=== PATIENT | male | born 1945 | race Caucasian/White ===

== ENCOUNTER 2017-05-01 08:06 | Day surgery (SDC) | payer MEDICARE, BC ==
--- NOTE | 2017-05-01 07:37 | PCM.PREANE ---
Preanesthetic Assessment - Anesthesia/Transfusion/Family Hx Anesthesia History: Prior Anesthesia Without Reaction Family History of Anesthesia Reaction: No Transfusion History: No Prior Transfusion(s) - Review of Systems General: No Symptoms Pulmonary: No Symptoms Cardiovascular: No Symptoms Gastrointestinal: No Symptoms Neurological: No Symptoms Other: Reports: None - Physical Assessment NPO Status Date: 04/30/17 Height: 1.83 m Weight: 117.027 kg ASA Class: 3 Mental Status: Alert & Oriented x3 Airway Class: Mallampati = 2 Dentition: Reports: Normal Dentition ROM/Head Extension: Full Lungs: Clear to Auscultation, Normal Respiratory Effort Cardiovascular: Regular Rate, Regular Rhythm - Allergies Allergies/Adverse Reactions: Allergies Allergy/AdvReac Type Severity Reaction Status Date / Time No Known Allergies Allergy Verified 04/25/17 10:52 - Anesthesia Plan Pre-Op Medication Ordered: None - Acknowledgements Anesthesia Type Planned: General Anesthesia Pt an Appropriate Candidate for the Planned Anesthesia: Yes Alternatives and Risks of Anesthesia Discussed w Pt/Guardian: Yes Pt/Guardian Understands and Agrees with Anesthesia Plan: Yes Additional Comments: PMH: DM 1.5 (on insulin), SAMMI uses CPAP, htn, hld, s/p jerry, gout, PVOD/PAD s/ p femoral stent Patient would prefer head of bed to be elevated 30% after surgery. PreAnesthesia Questionnaire Other HEENT History: wears glasses, has 2 upper dental implants Cardiovascular History: Reports: High Cholesterol, Hypertension Respiratory History: Reports: Sleep Apnea Other Respiratory History: uses CPAP Gastrointestinal History: Reports: Hiatal Hernia, Other (See Below) Other Gastrointestinal History: has Barretts Esophagus Musculoskeletal History: Reports: Gout Endocrine/Metabolic History: Reports: Diabetes, Type II, Obesity/BMI 30+ - Past Surgical History Head Surgeries/Procedures: Reports: None HEENT Surgical History: Reports: Oral Surgery Other HEENT Surgeries/Procedures: 2 dental implants Cardiovascular Surgical History: Reports: Vascular Surgery Other Cardiovascular Surgeries/Procedures: right femoral artery stent placement GI Surgical History: Reports: Colonoscopy, EGD, Mayito Fundoplication Musculoskeletal Surgical History: Reports: Arthroscopic Knee, Shoulder Surgery Other Musculoskeletal Surgeries/Procedures:: left RTCR, denies hardware - SUBSTANCE USE Smoking Status *Q: Former Smoker Tobacco Use Within Last Twelve Months: No Recreational Drug Use History: No - HOME MEDS Home Medications: Home Meds Allopurinol [Zyloprim] 300 mg PO DAILY 04/25/17 [History] Aspirin [Adult Low Dose Aspirin EC] 81 mg PO DAILY 04/25/17 [History] Bisoprolol [Zebeta] 5 mg PO DAILY 04/25/17 [History] Hydrochlorothiazide 25 mg PO DAILY 04/25/17 [History] Insulin Aspart [NovoLOG] 8 unit SQ TIDMEALS 04/25/17 [History] Insulin Glarg,Human.Rec.Analog [LantUS Solostar] 20 unit SQ QPM 04/25/17 [ History] Omeprazole 20 mg PO DAILY 04/25/17 [History] Pioglitazone HCl [Actos] 30 mg PO DAILY 04/25/17 [History] Rosuvastatin [Crestor] 10 mg PO DAILY 04/25/17 [History] amLODIPine [Norvasc] 5 mg PO DAILY 04/25/17 [History] - CURRENT (IN HOUSE) MEDS Current Meds: Current Medications Hydrocodone Bitart/Acetaminophen ([place] 325-5 Mg) 1 - 2 tab PO Q4H PRN PRN Reason: Pain Cefazolin Sodium/Dextrose 2 gm (/ Premix) 50 mls @ 100 mls/hr IV ONCALL [facility] Lactated Ringer's (Ringers, Lactated) 1,000 mls @ 100 mls/hr IV ASDIRECTED [facility]
[~2017-05-01 08:06] MED LIST: Acetaminophen/HYDROcodone 325-5 MG Tab PO PRN; Lactated Ringers 1,000 ML IV SCH; Lidocaine 1% 20 ML MDV ONE; ceFAZolin 2 GM in Premix Bag 1 BAG IV SCH
[2017-05-01] MEDS ORDERED: Dexamethasone 4 MG/ML 5 ML MDV ONE (08:44)
[2017-05-01] MEDS ORDERED: Midazolam 1 MG/ML 2 ML SDV ONE (08:44)
[2017-05-01] MEDS ORDERED: Propofol 200 MG/20 ML SDV ONE (08:44)
[2017-05-01] MEDS ORDERED: fentaNYL 250 MCG/5 ML SDV ONE (08:44)
[2017-05-01] MEDS ORDERED: Ondansetron 4 MG/2 ML SDV ONE (08:44)
[2017-05-01] MEDS ORDERED: diphenhydrAMINE 50 MG/ML SDV ONE (08:44)
--- NOTE | 2017-05-01 10:33 | PCM.OPNOTE ---
- General Post-Op/Procedure Note Date of Surgery/Procedure: 05/01/17 Operative Procedure(s): L knee arthroscopy with PMM/PLM Post-Op Diagnosis: L knee DJD, med/lat meniscus tear Anesthesia Technique: General LMA Primary Surgeon: Lina Olmedo Iron Melter: Kayley Moralez in mLs: 5 Condition: Good Free Text/Narrative:: tt=13 min #[id number]
[2017-05-01] MEDS ORDERED: Ketorolac 30 MG/ML SDV ONE (10:36)
--- NOTE | 2017-05-01 11:02 | PCM.POSTAN ---
POST ANESTHESIA ASSESSMENT - MENTAL STATUS Mental Status: Alert, Oriented - RESPIRATORY Respiratory Status: Respiratory Rate WNL, Airway Patent, O2 Saturation Stable - CARDIOVASCULAR CV Status: Pulse Rate WNL, Blood Pressure Stable - GASTROINTESTINAL GI Status: No Symptoms - PAIN Pain Score: 2 - POST OP HYDRATION Hydration Status: Adequate & Stable
--- NOTE | 2017-05-01 11:05 | OR ---
SURGEON: Lina Olmedo MD DATE OF PROCEDURE: 05/01/2017 PREOPERATIVE DIAGNOSES: 1. Degenerative joint disease, left knee. 2. Left knee lateral meniscus tear. POSTOPERATIVE DIAGNOSIS: 1. Degenerative joint disease, left knee. 2. Left knee lateral meniscus tear. PROCEDURE: Left knee arthroscopy with partial medial and lateral meniscectomies. SERVICE COUNTER CASHIER: Rach Ventura RN. ANESTHESIA: General. ESTIMATED BLOOD LOSS: 5 mL. TOURNIQUET TIME: 13 minutes. COMPLICATIONS: None. DVT PROPHYLAXIS: Not indicated. IMPLANTS USED: None. BRIEF HISTORY: Nico is a 71-year-old male who has had complaint of progressive left knee pain. An MRI did show a tear of the lateral meniscus. Due to his lack of response to conservative treatment, I did recommend surgical intervention. Risks and goals of the procedure were discussed with the patient and were documented preoperatively. He agreed to proceed. DESCRIPTION OF PROCEDURE: The patient was properly identified and brought to the operating room. He was transferred from the OR cart and placed on the operating table in supine position. General anesthesia was administered. After adequate anesthesia was obtained, a well-padded tourniquet was applied to the left lower extremity. The left lower extremity was then prepped in standard fashion using ChloraPrep solution. It was then sterilely draped. A time-out was performed to ensure correct site and procedure. Preoperative antibiotics were given. The surgical site had been marked preoperatively. An Esmarch was used to exsanguinate the left lower extremity and the tourniquet was inflated to 250 mmHg. A lateral portal arthrotomy was established. Blunt trocar and cannula were introduced into the suprapatellar pouch. Camera, inflow, and outflow were assembled. The suprapatellar pouch showed no significant synovitis. The patellofemoral joint was then visualized. 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 The trochlear groove showed minor grade 2 chondromalacia only. The patella appeared to track centrally. I then extended down the lateral and medial gutter. No loose bodies were identified. I then entered the medial compartment. A medial portal arthrotomy was established. A blunt probe was inserted. He was found to have a radial tear along the posterior horn of the medial meniscus. Using a combination of biters and shaver, this was resected back to a stable remnant. Grade 3 chondromalacia was also noted diffusely along the undersurface of the medial femoral condyle. A chondroplasty was performed and this was resected to a stable remnant. Grade 2 chondromalacia was noted along the medial tibial plateau. I then entered the notch. Both the ACL and PCL were visualized and probed and found to be intact. I then entered the lateral compartment. Grade 3 degenerative changes were again noted along the lateral tibial plateau. The lateral femoral condyle showed diffuse grade 2 chondromalacia changes only. He did have degenerative fraying with some horizontal tearing of the lateral meniscus. This was resected with a combination of biters and shaver. The meniscus was again probed and found to be stable. Instruments were then removed from the knee. The portal sites were closed with 3-0 nylon. Lidocaine 1% was injected along the portal tracts. Xeroform gauze was placed over the wound and a bulky dressing was applied. The tourniquet was then deflated. He was awakened from his anesthetic and transferred back to the operating room cart. He was brought to recovery room in stable condition. All needle and sponge counts were correct. KIRA / NICK /[id number]
--- NOTE | 2017-05-01 11:14 | PCM48HPAN ---
Post Anesthesia Note - EVALUATION WITHIN 48HRS OF ANESTHETIC Vital Signs in Normal Range: Yes Patient Participated in Evaluation: Yes Respiratory Function Stable: Yes Airway Patent: Yes Cardiovascular Function Stable: Yes Hydration Status Stable: Yes Pain Control Satisfactory: Yes Nausea and Vomiting Control Satisfactory: Yes Mental Status Recovered: Yes
== END 2017-05-01 12:00 | disposition home or self-care (01) ==
LOC: MW.SDS 08:06
PROVIDERS: ATTEND Orthopaedic Surgery
DX: M23.222 Derangement of posterior horn of medial meniscus due to old tear or injury, left knee (principal); M23.201 Derangement of unspecified lateral meniscus due to old tear or injury, left knee; M17.12 Unilateral primary osteoarthritis, left knee; M94.262 Chondromalacia, left knee; Z79.82 Long term (current) use of aspirin; Z79.899 Other long term (current) drug therapy
CPT/HCPCS: 29880; J0690; J1100; J1200; J1885; J2250; J2405; J3010; J7120; 01400; 88304; J2704

== ENCOUNTER 2018-01-20 06:35 | Inpatient (IN) | payer MEDICARE, BC ==
[~2018-01-20 06:35] MED LIST changes: -Acetaminophen/HYDROcodone 325-5 MG Tab PO PRN; +Famotidine 20 MG/2 ML SDV IVPUSH SCH; +Ketorolac 15 MG/ML SDV IVPUSH SCH; -Lactated Ringers 1,000 ML IV SCH; -Lidocaine 1% 20 ML MDV ONE; +Scopolamine 1.5 MG Transdermal Patch TRDERM SCH; -ceFAZolin 2 GM in Premix Bag 1 BAG IV SCH
[2018-01-20] MEDS: Acetaminophen 1,000 MG in Premix Bag 1 BAG IV SCH ×4 (07:13→18:18)
[2018-01-20] MEDS: Lactated Ringers 1,000 ML IV SCH ×2 (07:15→15:03)
[2018-01-20] MEDS ORDERED: ceFAZolin/Dextrose,Iso-Osmotic 2 GM/50 ML Duplex Bag IV ONE (07:25)
[2018-01-20] MEDS ORDERED: Midazolam 1 MG/ML 2 ML SDV ONE (07:26)
[2018-01-20] MEDS ORDERED: Propofol 200 MG/20 ML SDV ONE (07:26)
[2018-01-20] MEDS ORDERED: fentaNYL 100 MCG/2 ML SDV ONE (07:26)
--- NOTE | 2018-01-20 07:29 | PCM.PREANE ---
Preanesthetic Assessment - Procedure Proposed Procedure: Left TKR - Anesthesia/Transfusion/Family Hx Anesthesia History: Prior Anesthesia Without Reaction Family History of Anesthesia Reaction: No Transfusion History: No Prior Transfusion(s) Intubation History: Unknown Additional History: sleep apnea hx; former smoker;insulin dependent diabetic (FBS at 0600 - 120) - took 1/2 Lantus last PM - Review of Systems General: Other (bilateral leg pain) Pulmonary: No Symptoms, Other (SAMMI) Cardiovascular: Other (HTN-treated; PVD) Gastrointestinal: Other (Barretts esophagus) Neurological: Gait Disturbance (due to knee pains) Other: Reports: Diabetes (Type II - insulin dependent), Depression - Physical Assessment NPO Status Date: 01/19/18 NPO Status Time: 22:00 Height: 6 ft Weight: 250 lb ASA Class: 3 Mental Status: Alert & Oriented x3 Airway Class: Mallampati = 2 Dentition: Reports: Normal Dentition, Implants Thyro-Mental Finger Breadths: 3 Mouth Opening Finger Breadths: 3 ROM/Head Extension: Full Lungs: Clear to Auscultation, Normal Respiratory Effort Cardiovascular: Regular Rate, Regular Rhythm, No Murmurs - Allergies Allergies/Adverse Reactions: Allergies Allergy/AdvReac Type Severity Reaction Status Date / Time No Known Allergies Allergy Verified 01/15/18 09:54 - Blood Blood Available: No Product(s) Available: None - Anesthesia Plan Pre-Op Medication Ordered: Other (meds for post op per surgeon) - Acknowledgements Anesthesia Type Planned: Spinal (sedation only unless airway problem) Pt an Appropriate Candidate for the Planned Anesthesia: Yes Alternatives and Risks of Anesthesia Discussed w Pt/Guardian: Yes Pt/Guardian Understands and Agrees with Anesthesia Plan: Yes PreAnesthesia Questionnaire HEENT History: Reports: Other (See Below) Other HEENT History: wears glasses, has 2 upper dental implants Cardiovascular History: Reports: CAD, High Cholesterol, Hypertension Respiratory History: Reports: Sleep Apnea Other Respiratory History: uses CPAP Gastrointestinal History: Reports: GERD, Hiatal Hernia, Other (See Below) Other Gastrointestinal History: has Barretts Esophagus Genitourinary History: Reports: None Musculoskeletal History: Reports: Gout, Osteoarthritis Endocrine/Metabolic History: Reports: Diabetes, Type II, Obesity/BMI 30+ - Past Surgical History Head Surgeries/Procedures: Reports: None HEENT Surgical History: Reports: Oral Surgery, Tonsillectomy Other HEENT Surgeries/Procedures: 2 dental implants Cardiovascular Surgical History: Reports: Vascular Surgery Other Cardiovascular Surgeries/Procedures: right femoral artery stent placement GI Surgical History: Reports: Colonoscopy, EGD, Mayito Fundoplication Neurological Surgical History: Reports: Lumbar Spine Other Neurological Surgeries/Procedures: hx back surgery, denies hardware Musculoskeletal Surgical History: Reports: Arthroscopic Knee, Shoulder Surgery Other Musculoskeletal Surgeries/Procedures:: left RTCR, denies hardware - SUBSTANCE USE Smoking Status *Q: Former Smoker Recreational Drug Use History: No - HOME MEDS Home Medications: Home Meds Allopurinol [Zyloprim] 300 mg PO DAILY 04/25/17 [History] Aspirin [Adult Low Dose Aspirin EC] 81 mg PO DAILY 04/25/17 [History] Bisoprolol [Zebeta] 5 mg PO DAILY 04/25/17 [History] Hydrochlorothiazide 25 mg PO DAILY 04/25/17 [History] Insulin Aspart [NovoLOG] 8 unit SQ TIDMEALS 04/25/17 [History] Insulin Glarg,Human.Rec.Analog [LantUS Solostar] 20 unit SQ QPM 04/25/17 [ History] Omeprazole 20 mg PO DAILY 04/25/17 [History] Pioglitazone HCl [Actos] 30 mg PO DAILY 04/25/17 [History] Rosuvastatin [Crestor] 10 mg PO DAILY 04/25/17 [History] amLODIPine [Norvasc] 10 mg PO DAILY 04/25/17 [History] - CURRENT (IN HOUSE) MEDS Current Meds: Current Medications Bupivacaine Liposome (Exparel) 20 ml INFILT ONETIME [facility] Famotidine (Pepcid) 40 mg IVPUSH ONARRIVE [facility] Last Admin: 01/20/18 07:14 Dose: 40 mg Acetaminophen 1,000 mg/ Premix 100 mls @ 400 mls/hr IV ONARRIVE [facility] Last Admin: 01/20/18 07:13 Dose: 400 mls/hr Cefazolin Sodium/Dextrose 2 gm (/ Premix) 50 mls @ 100 mls/hr IV ONCALL [facility] Ropivacaine 49.25 ml/Ketorolac Tromethamine 30 mg/Epinephrine HCl 0.5 mg/ Clonidine HCl 80 mcg/ Sodium Chloride 70 mls @ 50 mls/sec INJECT ASDIRECTED [facility] Lactated Ringer's (Ringers, Lactated) 1,000 mls @ 100 mls/hr IV ASDIRECTED [facility] Tranexamic Acid 4,000 mg/ (Sodium Chloride) 140 mls @ 600 mls/hr IV ASDIRECTED [facility] Ketorolac Tromethamine (Toradol) 15 mg IVPUSH ONARRIVE [facility] Last Admin: 01/20/18 07:15 Dose: 15 mg Scopolamine (Transderm-Scop) 1.5 mg TRDERM ONARRIVE [facility] Last Admin: 01/20/18 07:14 Dose: 1.5 mg
[2018-01-20] MEDS ORDERED: Bupivacaine Liposome 1.3% 20 ML SDV INFILT SCH (08:00)
[2018-01-20] MEDS ORDERED: Ropivacaine 49.25 ML, Ketorolac 30 MG, EPINEPHrine 0.5 MG, cloNIDine 80 MCG in Sodium C... INJECT SCH (08:00)
[2018-01-20] MEDS ORDERED: Tranexamic Acid 4,000 MG in Sodium Chloride 0.9% 100 ML IV SCH (08:00)
[2018-01-20] MEDS ORDERED: ceFAZolin 2 GM in Premix Bag 1 BAG IV SCH (08:00)
[2018-01-20] MEDS ORDERED: ePHEDrine 50 MG/ML SDV ONE (08:22)
[2018-01-20] MEDS ORDERED: Phenylephrine/Normal Saline 100 MCG/ML 10 ML Syringe ONE (08:29)
[2018-01-20] MEDS ORDERED: Ondansetron 4 MG/2 ML SDV IV PRN (09:48)
[2018-01-20] MEDS ORDERED: Bisacodyl 10 MG Supp RECTAL PRN (09:49)
[2018-01-20] MEDS ORDERED: Aluminum Hydroxide/Magnesium Hydroxide/Simethicone Susp 30 ML Cup PO PRN (09:49)
[2018-01-20] MEDS ORDERED: diphenhydrAMINE 25 MG Cap PO PRN (09:49)
[2018-01-20] MEDS ORDERED: Morphine PF 30 MG/30 ML PCA Vial IV SCH (10:00)
--- NOTE | 2018-01-20 10:01 | PCM.OPNOTE ---
- General Post-Op/Procedure Note Date of Surgery/Procedure: 01/20/18 Operative Procedure(s): L TKA Post-Op Diagnosis: DJD left knee Primary Surgeon: Lina Olmedo Yarn Dumper: Kayley Moralez in mLs: 50 Condition: Good Free Text/Narrative:: [id number]
--- NOTE | 2018-01-20 10:39 | PCM.POSTAN ---
POST ANESTHESIA ASSESSMENT - MENTAL STATUS Mental Status: Alert, Oriented - RESPIRATORY Respiratory Status: Respiratory Rate WNL, Airway Patent, O2 Saturation Stable - CARDIOVASCULAR CV Status: Pulse Rate WNL, Blood Pressure Stable - GASTROINTESTINAL GI Status: No Symptoms - PAIN Pain Score: 0 (able to move legs so residual spinal still effective) - POST OP HYDRATION Hydration Status: Adequate & Stable - OBSERVATIONS Free Text/Narrative:: To Phase II - med/surg
--- NOTE | 2018-01-20 13:21 | PCM.CONS ---
<Agustina KeeneandaJoão - Last Filed: 01/20/18 13:44> H&P History of Present Illness - General Date of Service: 01/20/18 Admit Problem/Dx: Admission Diagnosis/Problem Admission Diagnosis/Problem Replacement of total knee joint - History of Present Illness Initial Comments - Free Text/Narative: Nico Ordoñez is a 72 y/o male with history of Diabetes Mellitus type 2 on insulin and hypertension who is s/p left total knee arthroplasty by Dr. Olmedo on 01/20/18. Patient denies any pain in his lower extremities. States that his pain is well controlled with current medications. Denies any chest pain, dyspnea , abdominal pain. No dysuria or change in bowel movements. - Related Data Allergies/Adverse Reactions: Allergies Allergy/AdvReac Type Severity Reaction Status Date / Time apple Allergy Hives Verified 01/20/18 13:15 Home Medications: Home Meds Allopurinol [Zyloprim] 300 mg PO DAILY 04/25/17 [History] Aspirin [Adult Low Dose Aspirin EC] 81 mg PO DAILY 04/25/17 [History] Bisoprolol [Zebeta] 5 mg PO DAILY 04/25/17 [History] Hydrochlorothiazide 25 mg PO DAILY 04/25/17 [History] Insulin Aspart [NovoLOG] 8 unit SQ TIDMEALS 04/25/17 [History] Insulin Glarg,Human.Rec.Analog [LantUS Solostar] 20 unit SQ QPM 04/25/17 [ History] Omeprazole 20 mg PO DAILY 04/25/17 [History] Pioglitazone HCl [Actos] 30 mg PO DAILY 04/25/17 [History] Rosuvastatin [Crestor] 10 mg PO DAILY 04/25/17 [History] amLODIPine [Norvasc] 10 mg PO DAILY 04/25/17 [History] Past Medical History HEENT History: Reports: Other (See Below) Other HEENT History: wears glasses, has 2 upper dental implants Cardiovascular History: Reports: CAD, High Cholesterol, Hypertension Other Cardiovascular History: Stress test and Echo completed in September 2017 Respiratory History: Reports: Sleep Apnea Other Respiratory History: uses CPAP Gastrointestinal History: Reports: GERD, Hiatal Hernia, Other (See Below) Other Gastrointestinal History: has Barretts Esophagus Genitourinary History: Reports: None Musculoskeletal History: Reports: Gout, Osteoarthritis Neurological History: Reports: None Endocrine/Metabolic History: Reports: Diabetes, Type II, Obesity/BMI 30+ - Infectious Disease History Infectious Disease History: Reports: Chicken Pox - Past Surgical History Head Surgeries/Procedures: Reports: None HEENT Surgical History: Reports: Adenoidectomy, Oral Surgery, Tonsillectomy Other HEENT Surgeries/Procedures: 2 dental implants Cardiovascular Surgical History: Reports: Vascular Surgery Other Cardiovascular Surgeries/Procedures: right femoral artery stent placement GI Surgical History: Reports: Colonoscopy, EGD, Mayito Fundoplication Neurological Surgical History: Reports: Lumbar Spine Other Neurological Surgeries/Procedures: hx back surgery, denies hardware Musculoskeletal Surgical History: Reports: Arthroscopic Knee, Shoulder Surgery Other Musculoskeletal Surgeries/Procedures:: left RTCR, denies hardware Dermatological Surgical History: Reports: None Social & Family History - Family History HEENT: Reports: None Cardiac: Reports: CAD, Hypertension Respiratory: Reports: Asthma, Sleep Apnea GI: Reports: GERD : Reports: None OBGYN: Reports: None Musculoskeletal: Reports: Arthritis, Gout, Neck Pain, Chronic, Osteoarthritis Neurological: Reports: None Psychiatric: Reports: None Endocrine/Metabolic: Reports: Diabetes, type II Hematologic: Reports: None Immunologic: Reports: None Dermatologic: Reports: None Oncologic: Reports: None - Tobacco Use Smoking Status *Q: Former Smoker Years of Tobacco use: 23 Packs/Tins Daily: 2 Used Tobacco, but Quit: Yes Month/Year Tobacco Last Used: 29 years Second Hand Smoke Exposure: No - Caffeine Use Caffeine Use: Reports: Coffee, Tea - Recreational Drug Use Recreational Drug Use: No Drug Use in Last 12 Months: No H&P Review of Systems - Review of Systems: Review Of Systems: ROS reveals no pertinent complaints other than HPI. Exam - Exam Exam: See Below - Vital Signs Vital Signs: Last Vital Signs Temp 36.8 C 01/20/18 06:50 Pulse 71 01/20/18 10:52 Resp 12 01/20/18 10:52 BP 118/46 L 01/20/18 10:52 Pulse Ox 94 L 01/20/18 10:52 Weight: 113.398 kg - Exam General: Alert, Oriented, 4 HEENT: Conjunctiva Clear, Mucosa Moist & Frederika, Posterior Pharynx Clear, Pupils Equal, Pupils Reactive, PERRLA Neck: Supple, Trachea Midline, 2 Lungs: Clear to Auscultation, Normal Respiratory Effort Cardiovascular: Regular Rate, Regular Rhythm GI/Abdominal Exam: Normal Bowel Sounds, Soft, Non-Tender, No Organomegaly, No Distention, No Abnormal Bruit, No Mass, Pelvis Stable (Male) Exam: Deferred Rectal (Males) Exam: Deferred Back Exam: Normal Inspection, Full Range of Motion, NT Extremities: Other (Left lower extremity- Pedal pulses intact. Patient able to wiggle his toes and elevate his leg. ) Skin: Warm, Dry, Intact Neurological: Cranial Nerves Intact Neuro Extensive - Mental Status: Alert, Oriented x3, Normal Mood/Affect, Normal Cognition Psychiatric: Alert, Normal Affect, Normal Mood - Patient Data Lab Results Last 24 hrs: Laboratory Results - last 24 hr 01/20/18 01/20/18 01/20/18 Range/Units 07:10 11:39 12:20 WBC (4.0-11.0) K/uL RBC (4.50-5.90) M/uL Hgb (13.0-17.0) g/dL Hct (38.0-50.0) % MCV (80.0-98.0) fL MCH (27.0-32.0) pg MCHC (31.0-37.0) g/dL RDW Std Deviation (28.0-62.0) fl RDW Coeff of Shannan (11.0-15.0) % Plt Count (150-400) K/uL MPV (7.40-12.00) fL Neut % (Auto) (48.0-80.0) % Lymph % (Auto) (16.0-40.0) % [place] % (Auto) (0.0-15.0) % Eos % (Auto) (0.0-7.0) % Baso % (Auto) (0.0-1.5) % Neut # (Auto) (1.4-5.7) K/uL Lymph # (Auto) (0.6-2.4) K/uL [place] # (Auto) (0.0-0.8) K/uL Eos # (Auto) (0.0-0.7) K/uL Baso # (Auto) (0.0-0.1) K/uL Nucleated RBC % /100WBC Nucleated RBCs # K/uL Sodium 140 (136-148) mmol/L Potassium 4.5 (3.5-5.1) mmol/L Chloride 105 (98-107) mmol/L Carbon Dioxide 26.9 (21.0-32.0) mmol/L BUN 31 H (7.0-18.0) mg/dL Creatinine 1.9 H (0.8-1.3) mg/dL Est Cr Clr Drug Dosing 39.71 mL/min Estimated GFR (MDRD) 35.2 ml/min Glucose 151 H (74-106) mg/dL POC Glucose 141 H (60-110) mg/dL Calcium 8.6 (8.5-10.1) mg/dL Total Bilirubin 0.2 (0.2-1.0) mg/dL AST 15 (15-37) IU/L ALT 21 (14-63) IU/L Alkaline Phosphatase 103 (46-116) U/L Total Protein 5.9 L (6.4-8.2) g/dL Albumin 2.8 L (3.4-5.0) g/dL Globulin 3.1 (2.0-3.5) g/dL Albumin/Globulin Ratio 0.9 L (1.3-2.8) Blood Type O POSITIVE Antibody Screen NEGATIVE 01/20/18 Range/Units 12:20 WBC 7.13 (4.0-11.0) K/uL RBC 4.62 (4.50-5.90) M/uL Hgb 14.3 (13.0-17.0) g/dL Hct 41.9 (38.0-50.0) % MCV 90.7 (80.0-98.0) fL MCH 31.0 (27.0-32.0) pg MCHC 34.1 (31.0-37.0) g/dL RDW Std Deviation 47.2 (28.0-62.0) fl RDW Coeff of Shannan 14 (11.0-15.0) % Plt Count 168 (150-400) K/uL MPV 9.70 (7.40-12.00) fL Neut % (Auto) 77.5 (48.0-80.0) % Lymph % (Auto) 15.1 L (16.0-40.0) % [place] % (Auto) 6.5 (0.0-15.0) % Eos % (Auto) 0.6 (0.0-7.0) % Baso % (Auto) 0.3 (0.0-1.5) % Neut # (Auto) 5.5 (1.4-5.7) K/uL Lymph # (Auto) 1.1 (0.6-2.4) K/uL [place] # (Auto) 0.5 (0.0-0.8) K/uL Eos # (Auto) 0.0 (0.0-0.7) K/uL Baso # (Auto) 0.0 (0.0-0.1) K/uL Nucleated RBC % 0.0 /100WBC Nucleated RBCs # 0 K/uL Sodium (136-148) mmol/L Potassium (3.5-5.1) mmol/L Chloride (98-107) mmol/L Carbon Dioxide (21.0-32.0) mmol/L BUN (7.0-18.0) mg/dL Creatinine (0.8-1.3) mg/dL Est Cr Clr Drug Dosing mL/min Estimated GFR (MDRD) ml/min Glucose (74-106) mg/dL POC Glucose (60-110) mg/dL Calcium (8.5-10.1) mg/dL Total Bilirubin (0.2-1.0) mg/dL AST (15-37) IU/L ALT (14-63) IU/L Alkaline Phosphatase (46-116) U/L Total Protein (6.4-8.2) g/dL Albumin (3.4-5.0) g/dL Globulin (2.0-3.5) g/dL Albumin/Globulin Ratio (1.3-2.8) Blood Type Antibody Screen Result Diagrams: 01/20/18 12:20 01/20/18 12:20 Consult PN Assessment/Plan Procedures: Procedures CARDIOVASCULAR STRESS TEST (08/21/17) DRAIN/INJ JOINT/BURSA W/O US (06/11/17) HT MUSCLE IMAGE SPECT MULT (08/21/17) KNEE ARTHROSCOPY/SURGERY (05/01/17) METABOLIC PANEL TOTAL CA (09/20/17) MRI JNT OF LWR EXTRE W/O DYE (12/09/17) OFFICE/OUTPATIENT VISIT EST (06/11/17) ROUTINE VENIPUNCTURE (09/20/17) TTE W/DOPPLER COMPLETE (09/05/17) X-RAY EXAM KNEE 4 OR MORE (04/09/17) X-RAY EXAM OF SHOULDER (06/11/17) Problem List Initiated/Reviewed/Updated: Yes Plan: 1. Osteoarthritis s/p left total knee arthroplasty on 01/20/18. Will continue with current pain management per orthopedic team. PT/OT has been ordered by ortho team. 2. Chronic kidney disease. Likely secondary to diabetes mellitus type 2. Patient 's Creatinine is 1.9. His previous Cr in August 2017 was 1.8. This seems to be his baseline. Will continue to monitor his I/O's. If worsening Cr, will discontinue medications such as allopurinol and diuretics and start IV fluids. 3. Isulin dependent Diabetes mellitus. Will continue with patient's home regimen of Novolog 8 U TID and Lantus 20 U QHS. 4. Hypertension, controlled. Will continue with current blood pressure medications. 5. DVT prophylaxis. Per orthopedic team. <Jett James - Last Filed: 01/20/18 16:01> H&P History of Present Illness - General Admit Problem/Dx: Admission Diagnosis/Problem Admission Diagnosis/Problem Replacement of total knee joint Exam - Vital Signs Vital Signs: Last Vital Signs Temp 36.3 C 01/20/18 13:47 Pulse 65 01/20/18 13:47 Resp 16 01/20/18 13:47 BP 126/62 01/20/18 13:47 Pulse Ox 96 01/20/18 13:47 - Patient Data Lab Results Last 24 hrs: Laboratory Results - last 24 hr 01/20/18 01/20/18 01/20/18 Range/Units 07:10 11:39 12:20 WBC (4.0-11.0) K/uL RBC (4.50-5.90) M/uL Hgb (13.0-17.0) g/dL Hct (38.0-50.0) % MCV (80.0-98.0) fL MCH (27.0-32.0) pg MCHC (31.0-37.0) g/dL RDW Std Deviation (28.0-62.0) fl RDW Coeff of Shannan (11.0-15.0) % Plt Count (150-400) K/uL MPV (7.40-12.00) fL Neut % (Auto) (48.0-80.0) % Lymph % (Auto) (16.0-40.0) % [place] % (Auto) (0.0-15.0) % Eos % (Auto) (0.0-7.0) % Baso % (Auto) (0.0-1.5) % Neut # (Auto) (1.4-5.7) K/uL Lymph # (Auto) (0.6-2.4) K/uL [place] # (Auto) (0.0-0.8) K/uL Eos # (Auto) (0.0-0.7) K/uL Baso # (Auto) (0.0-0.1) K/uL Nucleated RBC % /100WBC Nucleated RBCs # K/uL Sodium 140 (136-148) mmol/L Potassium 4.5 (3.5-5.1) mmol/L Chloride 105 (98-107) mmol/L Carbon Dioxide 26.9 (21.0-32.0) mmol/L BUN 31 H (7.0-18.0) mg/dL Creatinine 1.9 H (0.8-1.3) mg/dL Est Cr Clr Drug Dosing 39.71 mL/min Estimated GFR (MDRD) 35.2 ml/min Glucose 151 H (74-106) mg/dL POC Glucose 141 H (60-110) mg/dL Calcium 8.6 (8.5-10.1) mg/dL Total Bilirubin 0.2 (0.2-1.0) mg/dL AST 15 (15-37) IU/L ALT 21 (14-63) IU/L Alkaline Phosphatase 103 (46-116) U/L Total Protein 5.9 L (6.4-8.2) g/dL Albumin 2.8 L (3.4-5.0) g/dL Globulin 3.1 (2.0-3.5) g/dL Albumin/Globulin Ratio 0.9 L (1.3-2.8) Blood Type O POSITIVE Antibody Screen NEGATIVE 01/20/18 Range/Units 12:20 WBC 7.13 (4.0-11.0) K/uL RBC 4.62 (4.50-5.90) M/uL Hgb 14.3 (13.0-17.0) g/dL Hct 41.9 (38.0-50.0) % MCV 90.7 (80.0-98.0) fL MCH 31.0 (27.0-32.0) pg MCHC 34.1 (31.0-37.0) g/dL RDW Std Deviation 47.2 (28.0-62.0) fl RDW Coeff of Shnanan 14 (11.0-15.0) % Plt Count 168 (150-400) K/uL MPV 9.70 (7.40-12.00) fL Neut % (Auto) 77.5 (48.0-80.0) % Lymph % (Auto) 15.1 L (16.0-40.0) % [place] % (Auto) 6.5 (0.0-15.0) % Eos % (Auto) 0.6 (0.0-7.0) % Baso % (Auto) 0.3 (0.0-1.5) % Neut # (Auto) 5.5 (1.4-5.7) K/uL Lymph # (Auto) 1.1 (0.6-2.4) K/uL [place] # (Auto) 0.5 (0.0-0.8) K/uL Eos # (Auto) 0.0 (0.0-0.7) K/uL Baso # (Auto) 0.0 (0.0-0.1) K/uL Nucleated RBC % 0.0 /100WBC Nucleated RBCs # 0 K/uL Sodium (136-148) mmol/L Potassium (3.5-5.1) mmol/L Chloride (98-107) mmol/L Carbon Dioxide (21.0-32.0) mmol/L BUN (7.0-18.0) mg/dL Creatinine (0.8-1.3) mg/dL Est Cr Clr Drug Dosing mL/min Estimated GFR (MDRD) ml/min Glucose (74-106) mg/dL POC Glucose (60-110) mg/dL Calcium (8.5-10.1) mg/dL Total Bilirubin (0.2-1.0) mg/dL AST (15-37) IU/L ALT (14-63) IU/L Alkaline Phosphatase (46-116) U/L Total Protein (6.4-8.2) g/dL Albumin (3.4-5.0) g/dL Globulin (2.0-3.5) g/dL Albumin/Globulin Ratio (1.3-2.8) Blood Type Antibody Screen Result Diagrams: 01/20/18 12:20 01/20/18 12:20 Consult PN Assessment/Plan Procedures: Procedures CARDIOVASCULAR STRESS TEST (08/21/17) DRAIN/INJ JOINT/BURSA W/O US (06/11/17) HT MUSCLE IMAGE SPECT MULT (08/21/17) KNEE ARTHROSCOPY/SURGERY (05/01/17) METABOLIC PANEL TOTAL CA (09/20/17) MRI JNT OF LWR EXTRE W/O DYE (12/09/17) OFFICE/OUTPATIENT VISIT EST (06/11/17) ROUTINE VENIPUNCTURE (09/20/17) TTE W/DOPPLER COMPLETE (09/05/17) X-RAY EXAM KNEE 4 OR MORE (04/09/17) X-RAY EXAM OF SHOULDER (06/11/17) Internal medicine service has been requested to provide consultation on patient by orthopedic surgeon. I have examined the patient independently of medical appointment clerk and I agree with the resident's findings and recommendations. We'll continue to follow closely this patient. I'd like to thank Dr. Olmedo for participation in care of her patient. Requesting Provider: Honorio Date Consult Requested: 01/20/18 Patient History Reviewed: Yes Admission H&P Reviewed: Yes Notified Requestor: Yes
[2018-01-20] MEDS ORDERED: Bupivacaine Liposome 1.3% 20 ML SDV INFILT ONE (13:34)
[2018-01-20] MEDS: Insulin Aspart 100 Units/ML 3 ML Pen SUBCUT SCH ×2 (13:50→16:43)
--- NOTE | 2018-01-20 14:52 | OR ---
SURGEON: Lnia Olmedo MD DATE OF PROCEDURE: 01/20/2018 PREOPERATIVE DIAGNOSIS: Degenerative joint disease, left knee, tricompartmental. POSTOPERATIVE DIAGNOSIS: Degenerative joint disease, left knee, tricompartmental. PROCEDURE: Left total knee arthroplasty using patient specific instrumentation. CONVOLUTE TUBE WINDER: Kayley Moralez PA-C ANESTHESIA: Spinal with sedation. ESTIMATED BLOOD LOSS: 50 mL. TOURNIQUET TIME: 48 minutes. COMPLICATIONS: None. DVT PROPHYLAXIS: PAS boot and ANUJ hose to the nonoperative leg. IMPLANTS USED: Brea Persona femoral component size 9 standard (LPS), tibial component size G, 10 mm all-polyethylene articular surface, and 38 mm all-polyethylene patella. INTRAOPERATIVE FINDINGS: Showed tricompartmental degenerative changes with grade 4 chondromalacia in all compartments. No significant synovitis was noted. Small osteophytes were also found. BRIEF HISTORY: Nico is a 72-year-old male who has had complaint of progressive left knee pain. X-rays did confirm tricompartmental degenerative changes. He failed to respond to conservative treatment. Due to his lack of response to conservative treatment, I did recommend surgical intervention. The risks and goals of procedure were discussed with the patient and were documented preoperatively. He agreed to proceed. DESCRIPTION OF PROCEDURE: The patient was properly identified and brought to the operating room. The patient was then transferred from the operating room cart and placed on the operating table in a supine position. Anesthesia was administered by the anesthesia staff. After adequate anesthesia was obtained, a well-padded tourniquet was applied to the surgical lower extremity. Soto catheter was placed. The lower extremity was then prepped in standard fashion using ChloraPrep solution. It was then sterilely draped. A time-out was performed to ensure correct site and procedure. Preoperative antibiotics were given along with one gram of tranexamic acid IV. The surgical site had been marked preoperatively. An Esmarch was used to exsanguinate the left lower extremity and the tourniquet was inflated. An incision was made over the anterior aspect of the knee. The subcutaneous tissues were dissected down to the level of the fascia. A medial parapatellar approach to the knee was made. A portion of the infrapatellar fat pad was then excised. The distal femur was then exposed. The femoral patient-specific cutting guide was then placed. Pins were also placed. The distal femoral cutting block was placed and the distal femoral cut was made. Instrumentation was then removed. Both Whitesides' line and the epicondylar axis were then marked with electrocautery. The 4-in-1 cutting block was placed. This was placed in a slightly externally rotated position, which corresponded well with the previously drawn lines. The cutting guide was then pinned into position. An Jesús wing guide was used to check the depth of resection of our anterior condylar cut and it was felt that no notching would occur. The anterior condylar cut was then made followed by the posterior condylar cut. Both the posterior chamfer and anterior chamfer cuts were then made. The cutting block was then removed along with the excess bony remnants. We then turned our attention to the tibia. The anterior cruciate ligament and posterior cruciate ligament were released and a posterior cruciate ligament retractor was placed to allow the tibia to be pulled anteriorly. The tibial patient-specific guide was then placed on the proximal tibia. This fit anatomically. The pins were then placed. The proximal tibia cutting guide was then placed and screwed into position. The proximal tibial resection was then made with care being taken to protect the patellar tendon. The bony resection was then removed. The remainder of the medial and lateral meniscus were then excised. Care was taken to protect the popliteus tendon. The tibia was then sized to the appropriate size. The distal femur was then elevated. The posterior capsule was stripped off the distal femur both medially and laterally. The posterior capsule along with the medial and lateral gutters were then injected with a standard mixture consisting of clonidine, epinephrine, Toradol, and Ropivacaine, unless any allergies were found preoperatively. Exaprel 10 mg was also administered in a similar manner. The femoral component was then placed onto the distal femur in a slightly lateral position. This fit the femur well. A box cut was then made without difficulty. This was then removed. The tibial trial along with the polyethylene liner was then placed. The knee came easily into full extension and was stable to varus and valgus stressing both in full extension and flexion. Any additional releases were performed at this time. We then returned our attention to the patella. The patella was everted and towel clamps were used to hold the patella in position. It was resected to a 15 millimeter thickness. It was then sized to the appropriate size. It was prepared in the usual fashion after placing the predetermined size clamps. This was placed in a slightly superior and medial position. The clamp was then removed. The patellar trial button was placed. The knee was taken through a range of motion using the no-touch technique. The patella tracked centrally. A drop melvin was then placed to check alignment. All instruments were then removed from the knee. The tibial sizer was then placed on the tibia. The tibia was prepared in the usual fashion using the reamer and broach. This was then removed. All bony surfaces were copiously irrigated with Pulsavac solution. They were then suctioned dry. Cement was prepared on the back table in the usual manner. Once it was prepared, the bone ends were again suctioned dry. The tibia was cemented into place first. This was malleted into position. Excess cement was then cleared. The femur was then placed in a similar manner. We placed the polyethylene trial into place and the knee was brought into full extension. An axial load was placed while keeping the knee in full extension. The patella button was also cemented into position and the clamp was used to hold this in place as the cement was allowed to cure. The wound was again copiously irrigated with saline solution using a Pulsavac energy and conservation technician. Following this 1 g of tranexamic acid was applied to the wound topically. After we had adequate curing of the cement, the knee was again taken through a range of motion. The size of the polyethylene was then determined. The polyethylene trial was then removed. The tibial tray was suctioned to make sure there was no remaining soft tissue or cement. Excess cement was cleared from around the edges of the prosthesis as well. The tourniquet was then deflated. We were able to observe for any excess bleeding and none was noted. Electrocautery was used to maintain hemostasis. An additional gram of tranexamic acid was given IV. The retractors were again placed and the predetermined polyethylene was then placed. This was locked into position without difficulty. The knee was again taken through a range of motion with no change from the prior exam.Exaprel 10mg was placed along the incision. The fascial layer was closed with Number One Vicryl. The subcutaneous tissues were closed with 2-0 Vicryl. The skin was closed with dana. Xeroform gauze was placed over the wound and a bulky dressing was applied. The patient was then awakened from anesthesia and transferred back to the operating room cart. They were brought to the recovery room in stable condition. All needle and sponge counts were correct. KIRA / NICK /[id number] MTDD
[2018-01-20] MEDS: Ketorolac 15 MG/ML SDV IVPUSH SCH ×2 (14:59→20:17)
--- NOTE | 2018-01-20 15:46 | CR ---
EXAMINATION: Left knee HISTORY: Arthroplasty COMPARISON: 04/09/2017 TECHNIQUE: 2 views FINDINGS/IMPRESSION: Left total knee hardware is demonstrated in good position and alignment. Operati ve soft tissue changes noted.
[2018-01-20] MEDS: ceFAZolin 2 GM in Premix Bag 1 BAG IV SCH ×2 (16:44→23:04)
[2018-01-20] MEDS ORDERED: Insulin Glargine,Human Rec. Analog 100 Units/ML 3 ML Pen SUBCUT SCH (18:00)
[2018-01-20] MEDS: Docusate Sodium 100 MG Cap PO SCH (20:17)
[2018-01-20] MEDS: Polyethylene Glycol 3350 Powder 17 GM Packet PO SCH (20:18)
[2018-01-20] MEDS: oxyCODONE 5 MG Tab PO PRN (20:24)
[2018-01-21] MEDS: Acetaminophen 1,000 MG in Premix Bag 1 BAG IV SCH ×2 (00:15→00:21)
[2018-01-21] MEDS: oxyCODONE 5 MG Tab PO PRN ×2 (00:23→06:25)
[2018-01-21] MEDS: Lactated Ringers 1,000 ML IV SCH (03:22)
[2018-01-21] MEDS: Ketorolac 15 MG/ML SDV IVPUSH SCH (03:22)
[2018-01-21] MEDS ORDERED: Sodium Chloride 0.9% 10 ML Syringe FLUSH PRN (06:44)
[2018-01-21] MEDS ORDERED: Sodium Chloride 0.9% 2.5 ML Syringe FLUSH PRN (06:44)
[2018-01-21] MEDS ORDERED: Ondansetron 4 MG Tab.DIS PO PRN (06:44)
--- NOTE | 2018-01-21 06:53 | PCM.SURGPN ---
<Kayley Moralez R - Last Filed: 01/21/18 06:53> - General Info Date of Service: 01/21/18 Date of Surgery/Procedure: 01/20/18 POD#: 1 Functional Status: Reports: Pain Controlled, Tolerating Diet, Ambulating - Review of Systems General: Reports: No Symptoms. Denies: Fever Pulmonary: Reports: No Symptoms. Denies: Shortness of Breath Cardiovascular: Reports: No Symptoms. Denies: Chest Pain, Palpitations Gastrointestinal: Reports: Nausea Musculoskeletal: Reports: Leg Pain Systems Review Comment:: pt up to chair for breakfast tolerated PO intake well IV was dc'ed last night after 2 accidental removals by pt pain control w/o IV medications some nausea no specific concerns - Patient Data Vitals - Most Recent: Last Vital Signs Temp 98.0 F 01/21/18 05:00 Pulse 72 01/21/18 05:00 Resp 19 01/21/18 05:00 BP 119/60 01/21/18 05:00 Pulse Ox 96 01/21/18 05:00 Weight - Most Recent: 113.398 kg I&O - Last 24 Hours: Intake & Output 01/20/18 01/20/18 01/21/18 14:59 22:59 06:59 Intake Total 1550 2330 900 Output Total 600 950 Balance 1550 1730 -50 Lab Results Last 24 Hrs: Laboratory Results - last 24 hr 01/20/18 01/20/18 01/20/18 Range/Units 07:10 11:39 12:20 WBC (4.0-11.0) K/uL RBC (4.50-5.90) M/uL Hgb (13.0-17.0) g/dL Hct (38.0-50.0) % MCV (80.0-98.0) fL MCH (27.0-32.0) pg MCHC (31.0-37.0) g/dL RDW Std Deviation (28.0-62.0) fl RDW Coeff of Shannna (11.0-15.0) % Plt Count (150-400) K/uL MPV (7.40-12.00) fL Neut % (Auto) (48.0-80.0) % Lymph % (Auto) (16.0-40.0) % Brooks % (Auto) (0.0-15.0) % Eos % (Auto) (0.0-7.0) % Baso % (Auto) (0.0-1.5) % Neut # (Auto) (1.4-5.7) K/uL Lymph # (Auto) (0.6-2.4) K/uL Brooks # (Auto) (0.0-0.8) K/uL Eos # (Auto) (0.0-0.7) K/uL Baso # (Auto) (0.0-0.1) K/uL Nucleated RBC % /100WBC Nucleated RBCs # K/uL Sodium 140 (136-148) mmol/L Potassium 4.5 (3.5-5.1) mmol/L Chloride 105 (98-107) mmol/L Carbon Dioxide 26.9 (21.0-32.0) mmol/L BUN 31 H (7.0-18.0) mg/dL Creatinine 1.9 H (0.8-1.3) mg/dL Est Cr Clr Drug Dosing 39.71 mL/min Estimated GFR (MDRD) 35.2 ml/min Glucose 151 H (74-106) mg/dL POC Glucose 141 H (60-110) mg/dL Calcium 8.6 (8.5-10.1) mg/dL Total Bilirubin 0.2 (0.2-1.0) mg/dL AST 15 (15-37) IU/L ALT 21 (14-63) IU/L Alkaline Phosphatase 103 (46-116) U/L Total Protein 5.9 L (6.4-8.2) g/dL Albumin 2.8 L (3.4-5.0) g/dL Globulin 3.1 (2.0-3.5) g/dL Albumin/Globulin Ratio 0.9 L (1.3-2.8) Blood Type O POSITIVE Antibody Screen NEGATIVE 01/20/18 01/20/18 01/21/18 Range/Units 12:20 16:42 05:20 WBC 7.13 (4.0-11.0) K/uL RBC 4.62 (4.50-5.90) M/uL Hgb 14.3 14.5 (13.0-17.0) g/dL Hct 41.9 42.4 (38.0-50.0) % MCV 90.7 (80.0-98.0) fL MCH 31.0 (27.0-32.0) pg MCHC 34.1 (31.0-37.0) g/dL RDW Std Deviation 47.2 (28.0-62.0) fl RDW Coeff of Shannan 14 (11.0-15.0) % Plt Count 168 (150-400) K/uL MPV 9.70 (7.40-12.00) fL Neut % (Auto) 77.5 (48.0-80.0) % Lymph % (Auto) 15.1 L (16.0-40.0) % Brooks % (Auto) 6.5 (0.0-15.0) % Eos % (Auto) 0.6 (0.0-7.0) % Baso % (Auto) 0.3 (0.0-1.5) % Neut # (Auto) 5.5 (1.4-5.7) K/uL Lymph # (Auto) 1.1 (0.6-2.4) K/uL Brooks # (Auto) 0.5 (0.0-0.8) K/uL Eos # (Auto) 0.0 (0.0-0.7) K/uL Baso # (Auto) 0.0 (0.0-0.1) K/uL Nucleated RBC % 0.0 /100WBC Nucleated RBCs # 0 K/uL Sodium (136-148) mmol/L Potassium (3.5-5.1) mmol/L Chloride (98-107) mmol/L Carbon Dioxide (21.0-32.0) mmol/L BUN (7.0-18.0) mg/dL Creatinine (0.8-1.3) mg/dL Est Cr Clr Drug Dosing mL/min Estimated GFR (MDRD) ml/min Glucose (74-106) mg/dL POC Glucose 113 H (60-110) mg/dL Calcium (8.5-10.1) mg/dL Total Bilirubin (0.2-1.0) mg/dL AST (15-37) IU/L ALT (14-63) IU/L Alkaline Phosphatase (46-116) U/L Total Protein (6.4-8.2) g/dL Albumin (3.4-5.0) g/dL Globulin (2.0-3.5) g/dL Albumin/Globulin Ratio (1.3-2.8) Blood Type Antibody Screen 01/21/18 Range/Units 05:20 WBC (4.0-11.0) K/uL RBC (4.50-5.90) M/uL Hgb (13.0-17.0) g/dL Hct (38.0-50.0) % MCV (80.0-98.0) fL MCH (27.0-32.0) pg MCHC (31.0-37.0) g/dL RDW Std Deviation (28.0-62.0) fl RDW Coeff of Shannan (11.0-15.0) % Plt Count (150-400) K/uL MPV (7.40-12.00) fL Neut % (Auto) (48.0-80.0) % Lymph % (Auto) (16.0-40.0) % Brooks % (Auto) (0.0-15.0) % Eos % (Auto) (0.0-7.0) % Baso % (Auto) (0.0-1.5) % Neut # (Auto) (1.4-5.7) K/uL Lymph # (Auto) (0.6-2.4) K/uL Brooks # (Auto) (0.0-0.8) K/uL Eos # (Auto) (0.0-0.7) K/uL Baso # (Auto) (0.0-0.1) K/uL Nucleated RBC % /100WBC Nucleated RBCs # K/uL Sodium 135 L (136-148) mmol/L Potassium 4.5 (3.5-5.1) mmol/L Chloride 101 (98-107) mmol/L Carbon Dioxide 28.4 (21.0-32.0) mmol/L BUN 28 H (7.0-18.0) mg/dL Creatinine 1.8 H (0.8-1.3) mg/dL Est Cr Clr Drug Dosing 41.91 mL/min Estimated GFR (MDRD) 37.5 ml/min Glucose 113 H (74-106) mg/dL POC Glucose (60-110) mg/dL Calcium 8.4 L (8.5-10.1) mg/dL Total Bilirubin 0.5 (0.2-1.0) mg/dL AST 19 (15-37) IU/L ALT 21 (14-63) IU/L Alkaline Phosphatase 103 (46-116) U/L Total Protein 6.1 L (6.4-8.2) g/dL Albumin 2.8 L (3.4-5.0) g/dL Globulin 3.3 (2.0-3.5) g/dL Albumin/Globulin Ratio 0.9 L (1.3-2.8) Blood Type Antibody Screen Med Orders - Current: Current Medications Al Hydroxide/Mg Hydroxide (Mag-Al Plus) 30 ml PO Q4H PRN PRN Reason: indigestion Allopurinol (Zyloprim) 300 mg PO DAILY [facility] Amlodipine Besylate (Norvasc) 10 mg PO DAILY [facility] Aspirin (Aspirin) 325 mg PO BID [facility] Bisacodyl (Dulcolax) 10 mg RECTAL DAILY PRN PRN Reason: Constipation Bupivacaine Liposome (Exparel) 20 ml INFILT ONETIME [facility] Celecoxib (Celebrex) 200 mg PO DAILY [facility] Diphenhydramine HCl (Benadryl) 25 - 50 mg PO Q6H PRN PRN Reason: Itching Docusate Sodium (Colace) 100 mg PO BID [facility] Last Admin: 01/20/18 20:17 Dose: 100 mg Famotidine (Pepcid) 40 mg IVPUSH ONARRIVE [facility] Last Admin: 01/20/18 07:14 Dose: 40 mg Famotidine (Pepcid) 40 mg PO DAILY [facility] Hydrochlorothiazide (Hydrochlorothiazide) 25 mg PO DAILY [facility] Acetaminophen 1,000 mg/ Premix 100 mls @ 400 mls/hr IV ONARRIVE [facility] Last Admin: 01/21/18 00:15 Dose: 400 mls/hr Cefazolin Sodium/Dextrose 2 gm (/ Premix) 50 mls @ 100 mls/hr IV ONCALL [facility] Ropivacaine 49.25 ml/Ketorolac Tromethamine 30 mg/Epinephrine HCl 0.5 mg/ Clonidine HCl 80 mcg/ Sodium Chloride 70 mls @ 50 mls/sec INJECT ASDIRECTED [facility] Tranexamic Acid 4,000 mg/ (Sodium Chloride) 140 mls @ 600 mls/hr IV ASDIRECTED [facility] Insulin Aspart (Novolog) 8 unit SUBCUT TIDMEALS [facility] Last Admin: 01/20/18 16:43 Dose: 8 units Insulin Glargine (Lantus Solostar) 20 units SUBCUT QPM [facility] Last Admin: 01/20/18 18:18 Dose: 20 units Ketorolac Tromethamine (Toradol) 15 mg IVPUSH ONARRIVE [facility] Last Admin: 01/20/18 07:15 Dose: 15 mg Morphine Sulfate (Morphine Utility Repairer 30 Mg In 30 Ml) 30 mg IV ASDIRECTED [facility]; Protocol Stop: 01/21/18 08:00 Last Admin: 01/20/18 10:14 Dose: 30 mg Morphine Sulfate (Morphine Sulfate) 1 - 3 mg IV Q3H PRN PRN Reason: Pain Omeprazole (Omeprazole) 20 mg PO DAILY [facility] Ondansetron HCl (Zofran) 4 mg IV Q6HR PRN PRN Reason: NAUSEA/VOMITING Ondansetron HCl (Zofran Odt) 4 mg PO Q8H PRN PRN Reason: Nausea/Vomiting Oxycodone HCl (Oxycodone) 5 - 10 mg PO Q4H PRN PRN Reason: Pain Stop: 01/21/18 08:00 Last Admin: 01/21/18 06:25 Dose: 10 mg Oxycodone/Acetaminophen (Percocet 325-5 Mg) 1 - 2 tab PO Q4H PRN PRN Reason: Pain Bisoprolol 5 Mg 1 each PO DAILY [facility] Pioglitazone HCl (Actos) 30 mg PO DAILY [facility] Polyethylene Glycol (Miralax) 17 gm PO BID [facility] Last Admin: 01/20/18 20:18 Dose: Not Given Rosuvastatin Calcium (Crestor) 10 mg PO DAILY [facility] Scopolamine (Transderm-Scop) 1.5 mg TRDERM ONARRIVE [facility] Last Admin: 01/20/18 07:14 Dose: 1.5 mg Sodium Chloride (Saline Flush) 10 ml FLUSH ASDIRECTED PRN PRN Reason: Keep Vein Open Sodium Chloride (Saline Flush) 2.5 ml FLUSH ASDIRECTED PRN PRN Reason: Keep Vein Open Discontinued Medications Bupivacaine Liposome (Exparel) 20 ml INFILT .STK-MED ONE Stop: 01/20/18 13:35 Cefazolin Sodium/Dextrose (Ancef) Confirm Administered Dose 2 gm IV .STK-MED ONE Stop: 01/20/18 07:26 Ephedrine Sulfate (Ephedrine Sulfate) Confirm Administered Dose 50 mg .ROUTE .STK-MED ONE Stop: 01/20/18 08:23 Fentanyl (Sublimaze) Confirm Administered Dose 100 mcg .ROUTE .STK-MED ONE Stop: 01/20/18 07:27 Lactated Ringer's (Ringers, Lactated) 1,000 mls @ 100 mls/hr IV ASDIRECTED [facility] Last Admin: 01/21/18 03:22 Dose: 100 mls/hr Acetaminophen 1,000 mg/ Premix 100 mls @ 400 mls/hr IV Q6H [facility] Stop: 01/21/18 01:14 Last Admin: 01/21/18 00:21 Dose: 400 mls/hr Cefazolin Sodium/Dextrose 2 gm (/ Premix) 50 mls @ 100 mls/hr IV Q8H [facility] Stop: 01/21/18 00:29 Last Admin: 01/20/18 23:04 Dose: 100 mls/hr Ketorolac Tromethamine (Toradol) 15 mg IVPUSH Q6H [facility] Stop: 01/21/18 05:00 Last Admin: 01/21/18 03:22 Dose: 15 mg Midazolam HCl (Versed 1 Mg/Ml) Confirm Administered Dose 2 mg .ROUTE .STK-MED ONE Stop: 01/20/18 07:27 Phenylephrine HCl (Phenylephrine In Ns 100 Mcg/Ml) Confirm Administered Dose 1 mg .ROUTE .STK-MED ONE Stop: 01/20/18 08:30 Propofol (Diprivan 20 Ml) Confirm Administered Dose 600 mg .ROUTE .STK-MED ONE Stop: 01/20/18 07:27 Tranexamic Acid (Cyklokapron) Confirm Administered Dose 4,000 mg .ROUTE .STK- MED ONE Stop: 01/20/18 07:38 Tranexamic Acid (Cyklokapron) Confirm Administered Dose 1,000 mg .ROUTE .STK- MED ONE Stop: 01/20/18 14:11 - Exam Wound/Incisions: Dressing Dry and Intact General: Alert, Oriented Cardiovascular: Regular Rate, Regular Rhythm Extremities: Other (exam LLE - at/ehl/gastroc 5/5, dp 2+, sensation intact distally) Physical Findings Comment:: vss, afeb hgb 14.1 uo 1500mL - Problem List Review Problem List Initiated/Reviewed/Updated: Yes - My Orders Last 24 Hours: Active Orders 24 hr Category Date Time Status Patient Status [ADT] Routine ADT 01/20/18 06:00 Active Activity as Tolerated [RC] .Routine Care 01/20/18 09:48 Active Blood Glucose Check, Bedside [RC] ACBED Care 01/20/18 06:00 Active Communication Order [RC] DAILY Care 01/20/18 09:48 Active Dressing Change [Wound Care] [RC] ASDIRECTED Care 01/20/18 09:48 Active Insert Urinary Catheter [OM.PC] Q24H Care 01/20/18 08:00 Ordered Neurovascular Check [RC] Q2HR Care 01/20/18 09:47 Active Notify Provider Consults [RC] ASDIRECTED Care 01/20/18 09:51 Active Notify Provider Vital Signs [RC] ASDIRECTED Care 01/20/18 09:48 Active RT Incentive Spirometry [RC] ASDIRECTED Care 01/20/18 09:47 Active Urinary Catheter Removal [RC] Per Unit Routine Care 01/21/18 06:44 Ordered Vital Signs [RC] Q4H Care 01/20/18 09:47 Active Consult to Physician [CONS] Routine Cons 01/20/18 09:46 Active PT Evaluation and Treatment [CONS] Routine Cons 01/20/18 09:47 Active [employer] Diet [DIET] Diet 01/20/18 Lunch Active HEMOGLOBIN/HEMATOCRIT,HH [HEME] DAILY Lab 01/22/18 06:00 Ordered HEMOGLOBIN/HEMATOCRIT,HH [HEME] DAILY Lab 01/23/18 06:00 Ordered Acetaminophen [Ofirmev] 1,000 mg Med 01/20/18 06:00 Active Premix Bag 1 bag IV ONARRIVE Acetaminophen/oxyCODONE [Percocet 325-5 MG] Med 01/21/18 08:00 Active 1 - 2 tab PO Q4H PRN Allopurinol [Zyloprim] Med 01/21/18 09:00 Active 300 mg PO DAILY Alum Hydrox/Mag Hydrox/Simeth [Mag-Al Plus] Med 01/20/18 09:49 Active 30 ml PO Q4H PRN Aspirin Med 01/21/18 09:00 Active 325 mg PO BID Bisacodyl [Dulcolax] Med 01/20/18 09:49 Active 10 mg RECTAL DAILY PRN Bupivacaine Liposome/PF [Exparel] Med 01/20/18 08:00 Active 20 ml INFILT ONETIME Celecoxib [CeleBREX] Med 01/21/18 09:00 Active 200 mg PO DAILY Docusate Sodium [Colace] Med 01/20/18 21:00 Active 100 mg PO BID Famotidine [Pepcid] Med 01/20/18 06:00 Active 40 mg IVPUSH ONARRIVE Famotidine [Pepcid] Med 01/21/18 09:00 Active 40 mg PO DAILY Insulin Aspart [NovoLOG] Med 01/20/18 12:00 Active 8 unit SUBCUT TIDMEALS Insulin Glarg,Human.Rec.Analog [LantUS Solostar] Med 01/20/18 18:00 Active 20 units SUBCUT QPM Ketorolac [Toradol] Med 01/20/18 06:00 Active 15 mg IVPUSH ONARRIVE Morphine PF [Morphine TOEING STOCKINGS 30 MG in 30 ML] Med 01/20/18 10:00 Active 30 mg IV ASDIRECTED Morphine Sulfate Med 01/21/18 08:00 Active 1 - 3 mg IV Q3H PRN Omeprazole Med 01/21/18 09:00 Active 20 mg PO DAILY Ondansetron [Zofran ODT] Med 01/21/18 06:44 Ordered 4 mg PO Q8H PRN Ondansetron [Zofran] Med 01/20/18 09:48 Active 4 mg IV Q6HR PRN Patient's Own Medication [Ptom] Med 01/21/18 09:00 Active 1 each PO DAILY Pioglitazone [Actos] Med 01/21/18 09:00 Active 30 mg PO DAILY Polyethylene Glycol 3350 [MiraLAX] Med 01/20/18 21:00 Active 17 gm PO BID Ropivacaine [Naropin 0.2%] 49.25 ml Med 01/20/18 08:00 Active Ketorolac [Toradol] 30 mg EPINEPHrine [Adrenalin] 0.5 mg cloNIDine [Duraclon] 80 mcg Sodium Chloride 0.9% [Normal Saline] 18.45 ml INJECT ASDIRECTED Rosuvastatin [Crestor] Med 01/21/18 09:00 Active 10 mg PO DAILY Scopolamine [Transderm-Scop] Med 01/20/18 06:00 Active 1.5 mg TRDERM ONARRIVE Sodium Chloride 0.9% [Saline Flush] Med 01/21/18 06:44 Ordered 10 ml FLUSH ASDIRECTED PRN Sodium Chloride 0.9% [Saline Flush] Med 01/21/18 06:44 Ordered 2.5 ml FLUSH ASDIRECTED PRN Tranexamic Acid [Cyklokapron] 4,000 mg Med 01/20/18 08:00 Active Sodium Chloride 0.9% [Normal Saline] 100 ml IV ASDIRECTED amLODIPine [Norvasc] Med 01/21/18 09:00 Active 10 mg PO DAILY ceFAZolin [Ancef] 2 gm Med 01/20/18 08:00 Active Premix Bag 1 bag IV ONCALL diphenhydrAMINE [Benadryl] Med 01/20/18 09:49 Active 25 - 50 mg PO Q6H PRN hydroCHLOROthiazide Med 01/21/18 09:00 Active 25 mg PO DAILY oxyCODONE Med 01/20/18 09:49 Active 5 - 10 mg PO Q4H PRN Antiembolic Hose [OM.PC] Routine Oth 01/20/18 06:00 Ordered Convert IV to Saline Lock [OM.PC] Routine Oth 01/21/18 06:44 Ordered Ice Therapy [OM.PC] Routine Oth 01/20/18 09:47 Ordered Obtain Home Medication List [OM.PC] Routine Oth 01/20/18 06:00 Ordered Sequential Compression Device [OM.PC] Routine Oth 01/20/18 06:00 Ordered Medication Orders Al Hydroxide/Mg Hydroxide (Mag-Al Plus) 30 ml PO Q4H PRN PRN Reason: indigestion Allopurinol (Zyloprim) 300 mg PO DAILY [facility] Amlodipine Besylate (Norvasc) 10 mg PO DAILY [facility] Aspirin (Aspirin) 325 mg PO BID [facility] Bisacodyl (Dulcolax) 10 mg RECTAL DAILY PRN PRN Reason: Constipation Bupivacaine Liposome (Exparel) 20 ml INFILT ONETIME [facility] Celecoxib (Celebrex) 200 mg PO DAILY [facility] Diphenhydramine HCl (Benadryl) 25 - 50 mg PO Q6H PRN PRN Reason: Itching Docusate Sodium (Colace) 100 mg PO BID [facility] Last Admin: 01/20/18 20:17 Dose: 100 mg Famotidine (Pepcid) 40 mg IVPUSH ONARRIVE [facility] Last Admin: 01/20/18 07:14 Dose: 40 mg Famotidine (Pepcid) 40 mg PO DAILY [facility] Hydrochlorothiazide (Hydrochlorothiazide) 25 mg PO DAILY [facility] Acetaminophen 1,000 mg/ Premix 100 mls @ 400 mls/hr IV ONARRIVE [facility] Last Admin: 01/21/18 00:15 Dose: 400 mls/hr Infusion: 01/20/18 07:28 Dose: 400 mls/hr Admin: 01/20/18 07:13 Dose: 400 mls/hr Cefazolin Sodium/Dextrose 2 gm (/ Premix) 50 mls @ 100 mls/hr IV ONCALL [facility] Ropivacaine 49.25 ml/Ketorolac Tromethamine 30 mg/Epinephrine HCl 0.5 mg/ Clonidine HCl 80 mcg/ Sodium Chloride 70 mls @ 50 mls/sec INJECT ASDIRECTED [facility] Tranexamic Acid 4,000 mg/ (Sodium Chloride) 140 mls @ 600 mls/hr IV ASDIRECTED [facility] Insulin Aspart (Novolog) 8 unit SUBCUT TIDMEALS [facility] Last Admin: 01/20/18 16:43 Dose: 8 units Admin: 01/20/18 13:50 Dose: 8 units Insulin Glargine (Lantus Solostar) 20 units SUBCUT QPM [facility] Last Admin: 01/20/18 18:18 Dose: 20 units Ketorolac Tromethamine (Toradol) 15 mg IVPUSH ONARRIVE [facility] Last Admin: 01/20/18 07:15 Dose: 15 mg Morphine Sulfate (Morphine Utility Repairer 30 Mg In 30 Ml) 30 mg IV ASDIRECTED [facility]; Protocol Stop: 01/21/18 08:00 Last Admin: 01/20/18 10:14 Dose: 30 mg Morphine Sulfate (Morphine Sulfate) 1 - 3 mg IV Q3H PRN PRN Reason: Pain Omeprazole (Omeprazole) 20 mg PO DAILY [facility] Ondansetron HCl (Zofran) 4 mg IV Q6HR PRN PRN Reason: NAUSEA/VOMITING Ondansetron HCl (Zofran Odt) 4 mg PO Q8H PRN PRN Reason: Nausea/Vomiting Oxycodone HCl (Oxycodone) 5 - 10 mg PO Q4H PRN PRN Reason: Pain Stop: 01/21/18 08:00 Last Admin: 01/21/18 06:25 Dose: 10 mg Admin: 01/21/18 00:23 Dose: 10 mg Admin: 01/20/18 20:24 Dose: 10 mg Oxycodone/Acetaminophen (Percocet 325-5 Mg) 1 - 2 tab PO Q4H PRN PRN Reason: Pain Bisoprolol 5 Mg 1 each PO DAILY [facility] Pioglitazone HCl (Actos) 30 mg PO DAILY [facility] Polyethylene Glycol (Miralax) 17 gm PO BID [facility] Last Admin: 01/20/18 20:18 Dose: Not Given Rosuvastatin Calcium (Crestor) 10 mg PO DAILY [facility] Scopolamine (Transderm-Scop) 1.5 mg TRDERM ONARRIVE [facility] Last Admin: 01/20/18 07:14 Dose: 1.5 mg Sodium Chloride (Saline Flush) 10 ml FLUSH ASDIRECTED PRN PRN Reason: Keep Vein Open Sodium Chloride (Saline Flush) 2.5 ml FLUSH ASDIRECTED PRN PRN Reason: Keep Vein Open - Assessment Assessment (Free Text/Narrative):: POD#1 L TKA - Plan Plan (Free Text/Narrative):: DC IV access DC IV medications DC le continue pain management PT today 325mg ASA PO BID as DVT prophylaxis + SCD boots, ambulation change dressing to long aquacel dressing today may d/ch to home this afternoon if pain controlled/ambulating well dc meds/walker written <Lina Olmedo - Last Filed: 01/21/18 17:03> - Patient Data Vitals - Most Recent: Last Vital Signs Temp 97.7 F 01/21/18 11:36 Pulse 79 01/21/18 11:36 Resp 16 01/21/18 11:36 BP 125/61 01/21/18 11:36 Pulse Ox 94 L 01/21/18 11:36 I&O - Last 24 Hours: Intake & Output 01/21/18 01/21/18 01/21/18 06:59 14:59 22:59 Intake Total 900 800 Output Total 950 200 Balance -50 600 Lab Results Last 24 Hrs: Laboratory Results - last 24 hr 01/20/18 01/21/18 01/21/18 Range/Units 16:42 05:20 05:20 Hgb 14.5 (13.0-17.0) g/dL Hct 42.4 (38.0-50.0) % Sodium 135 L (136-148) mmol/L Potassium 4.5 (3.5-5.1) mmol/L Chloride 101 (98-107) mmol/L Carbon Dioxide 28.4 (21.0-32.0) mmol/L BUN 28 H (7.0-18.0) mg/dL Creatinine 1.8 H (0.8-1.3) mg/dL Est Cr Clr Drug Dosing 41.91 mL/min Estimated GFR (MDRD) 37.5 ml/min Glucose 113 H (74-106) mg/dL POC Glucose 113 H (60-110) mg/dL Calcium 8.4 L (8.5-10.1) mg/dL Total Bilirubin 0.5 (0.2-1.0) mg/dL AST 19 (15-37) IU/L ALT 21 (14-63) IU/L Alkaline Phosphatase 103 (46-116) U/L Total Protein 6.1 L (6.4-8.2) g/dL Albumin 2.8 L (3.4-5.0) g/dL Globulin 3.3 (2.0-3.5) g/dL Albumin/Globulin Ratio 0.9 L (1.3-2.8) 01/21/18 Range/Units 07:26 Hgb (13.0-17.0) g/dL Hct (38.0-50.0) % Sodium (136-148) mmol/L Potassium (3.5-5.1) mmol/L Chloride (98-107) mmol/L Carbon Dioxide (21.0-32.0) mmol/L BUN (7.0-18.0) mg/dL Creatinine (0.8-1.3) mg/dL Est Cr Clr Drug Dosing mL/min Estimated GFR (MDRD) ml/min Glucose (74-106) mg/dL POC Glucose 136 H (60-110) mg/dL Calcium (8.5-10.1) mg/dL Total Bilirubin (0.2-1.0) mg/dL AST (15-37) IU/L ALT (14-63) IU/L Alkaline Phosphatase (46-116) U/L Total Protein (6.4-8.2) g/dL Albumin (3.4-5.0) g/dL Globulin (2.0-3.5) g/dL Albumin/Globulin Ratio (1.3-2.8) Med Orders - Current: Current Medications Discontinued Medications Al Hydroxide/Mg Hydroxide (Mag-Al Plus) 30 ml PO Q4H PRN PRN Reason: indigestion Allopurinol (Zyloprim) 300 mg PO DAILY [facility] Last Admin: 01/21/18 09:00 Dose: 300 mg Amlodipine Besylate (Norvasc) 10 mg PO DAILY [facility] Last Admin: 01/21/18 08:58 Dose: 10 mg Aspirin (Aspirin) 325 mg PO BID [facility] Last Admin: 01/21/18 08:59 Dose: 325 mg Bisacodyl (Dulcolax) 10 mg RECTAL DAILY PRN PRN Reason: Constipation Bupivacaine Liposome (Exparel) 20 ml INFILT ONETIME CB Bupivacaine Liposome (Exparel) 20 ml INFILT .STK-MED ONE Stop: 01/20/18 13:35 Cefazolin Sodium/Dextrose (Ancef) Confirm Administered Dose 2 gm IV .STK-MED ONE Stop: 01/20/18 07:26 Celecoxib (Celebrex) 200 mg PO DAILY [facility] Last Admin: 01/21/18 09:00 Dose: 200 mg Diphenhydramine HCl (Benadryl) 25 - 50 mg PO Q6H PRN PRN Reason: Itching Docusate Sodium (Colace) 100 mg PO BID [facility] Last Admin: 01/21/18 08:59 Dose: 100 mg Ephedrine Sulfate (Ephedrine Sulfate) Confirm Administered Dose 50 mg .ROUTE .STK-MED ONE Stop: 01/20/18 08:23 Famotidine (Pepcid) 40 mg IVPUSH ONARRIVE [facility] Last Admin: 01/20/18 07:14 Dose: 40 mg Famotidine (Pepcid) 40 mg PO DAILY [facility] Last Admin: 01/21/18 09:01 Dose: 40 mg Fentanyl (Sublimaze) Confirm Administered Dose 100 mcg .ROUTE .STK-MED ONE Stop: 01/20/18 07:27 Hydrochlorothiazide (Hydrochlorothiazide) 25 mg PO DAILY [facility] Last Admin: 01/21/18 08:59 Dose: 25 mg Acetaminophen 1,000 mg/ Premix 100 mls @ 400 mls/hr IV ONARRIVE [facility] Last Admin: 01/21/18 00:15 Dose: 400 mls/hr Cefazolin Sodium/Dextrose 2 gm (/ Premix) 50 mls @ 100 mls/hr IV ONCALL [facility] Ropivacaine 49.25 ml/Ketorolac Tromethamine 30 mg/Epinephrine HCl 0.5 mg/ Clonidine HCl 80 mcg/ Sodium Chloride 70 mls @ 50 mls/sec INJECT ASDIRECTED [facility] Lactated Ringer's (Ringers, Lactated) 1,000 mls @ 100 mls/hr IV ASDIRECTED [facility] Last Admin: 01/21/18 03:22 Dose: 100 mls/hr Tranexamic Acid 4,000 mg/ (Sodium Chloride) 140 mls @ 600 mls/hr IV ASDIRECTED [facility] Acetaminophen 1,000 mg/ Premix 100 mls @ 400 mls/hr IV Q6H [facility] Stop: 01/21/18 01:14 Last Admin: 01/21/18 00:21 Dose: 400 mls/hr Cefazolin Sodium/Dextrose 2 gm (/ Premix) 50 mls @ 100 mls/hr IV Q8H [facility] Stop: 01/21/18 00:29 Last Admin: 01/20/18 23:04 Dose: 100 mls/hr Insulin Aspart (Novolog) 8 unit SUBCUT TIDMEALS [facility] Last Admin: 01/21/18 12:29 Dose: 8 units Insulin Glargine (Lantus Solostar) 20 units SUBCUT QPM [facility] Last Admin: 01/20/18 18:18 Dose: 20 units Ketorolac Tromethamine (Toradol) 15 mg IVPUSH ONARRIVE [facility] Last Admin: 01/20/18 07:15 Dose: 15 mg Ketorolac Tromethamine (Toradol) 15 mg IVPUSH Q6H [facility] Stop: 01/21/18 05:00 Last Admin: 01/21/18 03:22 Dose: 15 mg Midazolam HCl (Versed 1 Mg/Ml) Confirm Administered Dose 2 mg .ROUTE .STK-MED ONE Stop: 01/20/18 07:27 Morphine Sulfate (Morphine Utility Repairer 30 Mg In 30 Ml) 30 mg IV ASDIRECTED [facility]; Protocol Stop: 01/21/18 08:00 Last Admin: 01/20/18 10:14 Dose: 30 mg Morphine Sulfate (Morphine Sulfate) 1 - 3 mg IV Q3H PRN PRN Reason: Pain Omeprazole (Omeprazole) 20 mg PO DAILY [facility] Last Admin: 01/21/18 09:00 Dose: 20 mg Ondansetron HCl (Zofran) 4 mg IV Q6HR PRN PRN Reason: NAUSEA/VOMITING Ondansetron HCl (Zofran Odt) 4 mg PO Q8H PRN PRN Reason: Nausea/Vomiting Last Admin: 01/21/18 06:59 Dose: 4 mg Oxycodone HCl (Oxycodone) 5 - 10 mg PO Q4H PRN PRN Reason: Pain Stop: 01/21/18 08:00 Last Admin: 01/21/18 06:25 Dose: 10 mg Oxycodone/Acetaminophen (Percocet 325-5 Mg) 1 - 2 tab PO Q4H PRN PRN Reason: Pain Last Admin: 01/21/18 10:11 Dose: 2 tab Bisoprolol 5 Mg 1 each PO DAILY [facility] Last Admin: 01/21/18 09:02 Dose: Not Given Phenylephrine HCl (Phenylephrine In Ns 100 Mcg/Ml) Confirm Administered Dose 1 mg .ROUTE .STK-MED ONE Stop: 01/20/18 08:30 Pioglitazone HCl (Actos) 30 mg PO DAILY [facility] Last Admin: 01/21/18 09:00 Dose: 30 mg Polyethylene Glycol (Miralax) 17 gm PO BID [facility] Last Admin: 01/21/18 08:58 Dose: 17 gm Propofol (Diprivan 20 Ml) Confirm Administered Dose 600 mg .ROUTE .STK-MED ONE Stop: 01/20/18 07:27 Rosuvastatin Calcium (Crestor) 10 mg PO DAILY [facility] Last Admin: 01/21/18 09:00 Dose: 10 mg Scopolamine (Transderm-Scop) 1.5 mg TRDERM ONARRIVE [facility] Last Admin: 01/20/18 07:14 Dose: 1.5 mg Sodium Chloride (Saline Flush) 10 ml FLUSH ASDIRECTED PRN PRN Reason: Keep Vein Open Sodium Chloride (Saline Flush) 2.5 ml FLUSH ASDIRECTED PRN PRN Reason: Keep Vein Open Tranexamic Acid (Cyklokapron) Confirm Administered Dose 4,000 mg .ROUTE .STK- MED ONE Stop: 01/20/18 07:38 Tranexamic Acid (Cyklokapron) Confirm Administered Dose 1,000 mg .ROUTE .STK- MED ONE Stop: 01/20/18 14:11 - My Orders Last 24 Hours: Active Orders 24 hr Category Date Time Status Ready for Discharge [RC] PER UNIT ROUTINE Care 01/21/18 13:37 Active Urinary Catheter Removal [RC] Per Unit Routine Care 01/21/18 06:44 Active Convert IV to Saline Lock [OM.PC] Routine Oth 01/21/18 06:44 Ordered
[2018-01-21] MEDS ORDERED: Acetaminophen/oxyCODONE 325-5 MG Tab PO PRN (08:00)
[2018-01-21] MEDS: Polyethylene Glycol 3350 Powder 17 GM Packet PO SCH (08:58)
[2018-01-21] MEDS: Docusate Sodium 100 MG Cap PO SCH (08:59)
[2018-01-21] MEDS ORDERED: Omeprazole 20 MG Cap.CR PO SCH (09:00)
[2018-01-21] MEDS ORDERED: Hydrochlorothiazide 25 MG Tab PO SCH (09:00)
[2018-01-21] MEDS ORDERED: Pioglitazone 15 MG Tab PO SCH (09:00)
[2018-01-21] MEDS ORDERED: Famotidine 20 MG Tab PO SCH (09:00)
[2018-01-21] MEDS ORDERED: Celecoxib 100 MG Cap PO SCH (09:00)
[2018-01-21] MEDS ORDERED: amLODIPine 5 MG Tab PO SCH (09:00)
[2018-01-21] MEDS ORDERED: Rosuvastatin 10 MG Tab PO SCH (09:00)
[2018-01-21] MEDS ORDERED: Allopurinol 300 MG Tab PO SCH (09:00)
[2018-01-21] MEDS ORDERED: Aspirin 325 MG Tab PO SCH (09:00)
[2018-01-21] MEDS: Insulin Aspart 100 Units/ML 3 ML Pen SUBCUT SCH ×2 (09:03→12:29)
--- NOTE | 2018-01-21 09:30 | PCM48HPAN ---
Post Anesthesia Note - EVALUATION WITHIN 48HRS OF ANESTHETIC Vital Signs in Normal Range: Yes Patient Participated in Evaluation: Yes Respiratory Function Stable: Yes Airway Patent: Yes Cardiovascular Function Stable: Yes Hydration Status Stable: Yes Pain Control Satisfactory: Yes Nausea and Vomiting Control Satisfactory: Yes Mental Status Recovered: Yes Resp Rate: 18 Blood Pressure: 141/65
--- NOTE | 2018-01-22 09:16 | PCM.SN ---
- Free Text/Narrative Note: d/ch summary #[id number]
--- NOTE | 2018-01-22 12:14 | DISCH ---
DATE OF DISCHARGE: 01/21/2018 PRIMARY CARE PHYSICIAN: Shanice Castillo NP ADMITTING DIAGNOSIS: Degenerative joint disease, left knee, tricompartmental. OTHER MEDICAL DIAGNOSES: 1. Sleep apnea. 2. Insulin-dependent diabetic. 3. Peripheral vascular disease. 4. Webb esophagus. 5. Depression. DISCHARGE DIAGNOSES: 1. Degenerative joint disease, left knee, tricompartmental. 2. Sleep apnea. 3. Insulin-dependent diabetic. 4. Peripheral vascular disease. 5. Webb esophagus. 6. Depression. BRIEF HISTORY: Nico is a 72-year-old male who has had progressive complaints of left knee pain. He has tried and failed conservative treatment. At that time, surgical treatment was recommended. On January 20, 2018, the patient underwent a left total knee arthroplasty using patient-specific instrumentation done by Dr. Lina Olmedo. This was done under spinal anesthesia with sedation. Estimated blood loss was 50 mL. Please refer to the operative record for tourniquet time. There were no known complications. Upon completion of the procedure, the patient transferred to the PACU and subsequently to [facility] for postoperative care. HOSPITAL COURSE: Postoperatively, the patient did well. His pain is controlled with oral pain medications. He received 2 doses of Ancef postoperatively for a total of 24 hours of antibiotic coverage. Physical Therapy and the Hospitalist Service followed him through his hospital stay. Aspirin 325 mg by mouth twice daily was started on postoperative day #1 as DVT prophylaxis. His vital signs have been stable. He has been afebrile. His hemoglobin on the morning of January 21, was 14.3. His pain is well controlled. He is ambulating well with a wheeled walker. He feels comfortable with discharge to home. DISCHARGE MEDICATIONS: 1. Percocet 5/325. 2. Celebrex 200 mg. 3. Colace 100 mg. 4. MiraLAX. 5. Aspirin 325 mg. DISCHARGE INSTRUCTIONS: 1. Follow up in the clinic in 10 to 14 days from the date of procedure. This appointment has been made for the patient. 2. Outpatient physical therapy 2 to 3 times per week for 4 to 6 weeks. 3. Polar Care to the left knee as needed. 4. ANUJ hose, on in the morning, off in the evening. 5. No driving while taking narcotic pain medications. For complete medication reconciliation and discharge instructions, please refer back to the patient's EHR. Should he have questions or concerns prior to followup, he has been advised to contact the clinic. BRENT ROMERO /[id number]
== END 2018-01-21 14:20 | disposition home or self-care (01) | DRG 561 ==
LOC: MW.SDS 06:35 → MW.MS 11:15 → MW.SDS 12:30 → MW.MS 12:31
PROVIDERS: ADMIT Orthopaedic Surgery; ATTEND Orthopaedic Surgery
PROC: 0SRD069 Replacement of Left Knee Joint with Oxidized Zirconium on Polyethylene Synthetic Substitute, Cemented, Open Approach (ICD-10-PCS; principal; 2018-01-20)
DX: M17.12 Unilateral primary osteoarthritis, left knee (principal); Z47.1 Aftercare following joint replacement surgery; Z96.652 Presence of left artificial knee joint; E11.22 Type 2 diabetes mellitus with diabetic chronic kidney disease; N18.9 Chronic kidney disease, unspecified; I10 Essential (primary) hypertension; I25.10 Atherosclerotic heart disease of native coronary artery without angina pectoris; E78.00 Pure hypercholesterolemia, unspecified; G47.30 Sleep apnea, unspecified; K21.9 Gastro-esophageal reflux disease without esophagitis; K22.70 Barrett's esophagus without dysplasia; E11.9 Type 2 diabetes mellitus without complications; Z87.891 Personal history of nicotine dependence; Z79.4 Long term (current) use of insulin; Z79.899 Other long term (current) drug therapy; Z79.82 Long term (current) use of aspirin
CPT/HCPCS: 27447; 36415; 73560; 80053; 82962; 85025; 86850; 86900; 86901; A9270; J0131; J0171; J0690; J0735; J1885 ×2; J2250; J2274; J2704; J2795; J3010; J3490; J7050; J7120; 85014; 85018; 97110-GP; 97161-GP; C1713; C1776; J1815-GY; J2370